=== PATIENT | female | born 1935 | race Caucasian/White ===

== ENCOUNTER 2019-04-22 15:27 | Outpatient (RCR) | payer MEDICARE, SELFPAY ==
--- NOTE | 2019-04-22 15:46 | OTOPEVAL ---
OT INITIAL EVALUATION 04/22/19 Thank you for referring this patient to [facility]. Skilled OT is recommended 1x/week for 4 weeks. Please review, sign, date and return this plan of care MARIAN. I agree with and certify that the following plan of care is medically necessary. Referring Physician Date Attending Provider: Eliezer Godwin MD *OT Outpatient Evaluation Therapy Assessment Status Assessment Status Evaluation Evaluation Information Problem Diagnosis (R) wrist OA Additional Evaluation Detail Patient has had right wrist pain for about 1 month. X-ray shows OA. Subjective Information Patient notes the pain is the Query Text:As Reported By Patient/ worst when she uses her Family hands for housework such as cleaning, wringing out a washcloth, dishes, and laundry. She wears a wrist brace at night and has been taking prescribed arthritis medication with good results. Pain Assessment Timing of Pain Assessment Timing of Pain Assessment Assessment Pain Scale Pain Scale Used Numeric (1 - 10) Self Report Pain Assessment Right Wrist(s) Reported Pain Level 2 Pain Description Aching,Dull Current Pain Intensity 2 Lowest Pain Intensity 0 Greatest Pain Intensity 4 Pain Aggravating Factors ADL's Pain Relief Interventions Used By Heat,Medication Patient Interventions Used By Clinicians Education,Exercise Additional Pain Comments Pain reduced to 1/10 post ROM and strengthening. Pain Score Pain Score 2: Self Report Upper Extremity Range of Motion General Upper Extremity Range of Motion Reason Not Measured WNL/Left,WNL/Right Upper Extremity Muscle Strength Testing Wrist Strength Bilateral Wrist Flexion Strength 4 Good Wrist Extension Strength 4 Good Wrist Radial Deviation 4 Good Wrist Ulnar Deviation 4 Good Hand Knot Tier/Pinch Strength Assessment Hand Right Knot Tier Strength (lbs) 39 Left Knot Tier Strength (lbs) 40 Palpation Assessment Palpation Palpation Tenderness at distal lateral radius in the area of the 1st extensor compartment. Testsfor de Quervein's are negative. OT Clinical Summary Clinical Summary Protocol: OTEVCODES Clinical Summary May presents with new orders for hand and wrist OA. She has been experiencing a
--- NOTE | 2019-04-28 16:03 | OTOPEVAL ---
OT DISCHARGE NOTE 04/28/19 May presented to outpatient treatment today without pain and feeling good . She has not had pain for about a week now and previously had 05/06 pain. She has been instructed in gross wrist and hand strengthening program and is independent with all materials. She is in agreement with discharge today with HEP. Thank you for referring this patient to [facility] Please review, sign, date and return this D/C Note MARIAN. I agree with and certify that the following plan of care is medically necessary. Referring Physician Date Attending Provider: Eliezer Godwin,
--- NOTE | 2019-04-28 16:07 | PCOTNOTE ---
OT DISCHARGE NOTE 04/28/19 May presents to outpatient therapy today without pain and feeling good . She has had minimal to no pain for 2 weeks and the exercises do not exacerbate her pain. 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 Thank you for referring this patient to [facility]. Please review, sign, date and return this discharge note MARIAN. I agree with and certify that the following plan of care is medically necessary. Referring Physician Date Attending Provider: Eliezer Godwin MD
== END 2019-05-27 13:57 | disposition home or self-care (01) ==
LOC: ANHHIOT 15:27
PROVIDERS: PCP Internal Medicine; Visit Provider Internal Medicine
DX: M19.041 Primary osteoarthritis, right hand (principal); M19.032 Primary osteoarthritis, left wrist
CPT/HCPCS: 97110

== ENCOUNTER 2019-09-22 09:35 | Outpatient (CLI) | payer MEDICARE, SELFPAY ==
--- NOTE | 2019-09-22 11:15 | NEURO_ITS ---
Patient Number: [id number] Impression: # Complains of numbness of both hands. # Bilateral severe Carpal Tunnel Syndrome, left more than right. # No ulnar neuropathy. # Needle/EMG exam not requested. Nerve Conduction Studies Anti Sensory Summary Table Stim Site NR Peak (ms) P-T Amp (?V) Site1 Site2 Delta-P (ms) Dist (cm) Venkat (m/s) Left Median Anti Sensory (2-3nd Digit) NO RESPONSE Wrist 7.1 6.0 Wrist 2-3nd Digit 7.1 14.0 20 Wrist NR Wrist 2-3nd Digit 7.1 14.0 20 Right Median Anti Sensory (2-3nd Digit) Wrist 6.6 10.7 Wrist 2-3nd Digit 6.6 14.0 21 Wrist 6.4 4.3 Wrist 2-3nd Digit 6.6 14.0 21 Left Radial Anti Sensory (Base 1st Digit) Wrist 2.2 24.2 Wrist Base 1st Digit 2.2 0.0 Right Radial Anti Sensory (Base 1st Digit) Wrist 2.3 18.9 Wrist Base 1st Digit 2.3 0.0 Left Ulnar Anti Sensory (5th Digit) Wrist 2.3 50.2 Wrist 5th Digit 2.3 14.0 61 Right Ulnar Anti Sensory (5th Digit) Wrist 2.7 35.7 Wrist 5th Digit 2.7 14.0 52 Motor Summary Table Stim Site NR Onset (ms) O-P Amp (mV) Site1 Site2 Delta-0 (ms) Dist (cm) Venkat (m/s) Left Median Motor (Abd Poll Brev) NO RESPONSE Wrist NR Elbow Wrist 26.0 Elbow NR Right Median Motor (Abd Poll Brev) Wrist 5.9 3.2 Elbow Wrist 4.6 29.0 63 Elbow 10.5 2.6 Left Ulnar Motor (Abd Dig Minimi) Wrist 2.9 8.2 A Elbow Wrist 5.2 29.0 56 A Elbow 8.1 6.2 Right Ulnar Motor (Abd Dig Minimi) Wrist 2.3 7.6 A Elbow Wrist 5.6 31.0 55 A Elbow 7.9 6.4 F Wave Studies NR F-Lat (ms) L-R F-Lat (ms) Left Median (Mrkrs) (Abd Poll Brev) 32.18 0.41 Right Median (Mrkrs) (Abd Poll Brev) 32.60 0.41 Left Ulnar (Mrkrs) (Abd Dig Min) 30.55 0.14 Right Ulnar (Mrkrs) (Abd Dig Min) 30.68 0.14 MTDD
== END 2019-09-22 09:36 | disposition home or self-care (01) ==
LOC: ANHNEURO 09:38
PROVIDERS: PCP Internal Medicine; Visit Provider Internal Medicine
DX: G56.03 Carpal tunnel syndrome, bilateral upper limbs (principal)
CPT/HCPCS: 95911

== ENCOUNTER 2020-03-07 11:00 | Outpatient (RCR) | payer MEDICARE, SELFPAY ==
--- NOTE | 2020-02-15 12:27 | PTOPEVAL ---
INITIAL PHYSICAL THERAPY EVALUATION Thank you for referring Priscilla Fabian to [facility] Priscilla is scheduled to be seen for physical therapy? 2x/week for 3 weeks. Please review, sign, date and return this plan of care MARIAN. I agree with and certify that the following plan of care is medically necessary. Referring Physician Date Admitting Provider: Attending Provider: Eliezer Godwin, MD Referring Provider: *PT Outpatient Evaluation Start: 02/15/20 11:13 Freq: Status: Active Protocol: Document 02/15/20 11:10 ROSA MARIA (Rec: 02/15/20 12:26 ROSA MARIA [id number]) Therapy Assessment Status Assessment Status Assessment Status Evaluation Outpatient Past Medical History Past Medical History Source of Past Medical History Patient Neurological History Hx Neurological Disorders No Significant History Cardiovascular History Hx Hypertension Yes Respiratory History Hx Chronic Obstructive Pulmonary Disease Yes (COPD) Gastrointestinal History Hx Gastroesophageal Reflux Disease Yes Genitourinary History Hx Genitourinary Disorders No Significant History Musculoskeletal History Hx Arthritis Yes: B knees, spine Hx Fractures Yes: L zygomatic arch from fall Endocrine History Hx Endocrine Disorders No Significant History HEENT History Hx Cataracts Yes: surgery Hx Dental Problems Yes: dentures Hx Other HEENT Disorders Yes: tinnitis, vertigo Psychosocial History Hx Anxiety Yes Hx Depression Yes Evaluation Information Problem Diagnosis low back pain Onset worsening past few months Subjective Information sitting - no pain, when dust Query Text:As Reported By Patient/ mopping, dusting, etc - an Family ache across the lower back. Yesterday - when changing out of clothes for the seasons - increased discomfort. Cleaning is difficult for her. Sleeps well. Feels pretty good in the mornings. Some mobility issues with her knees . 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
--- NOTE | 2020-02-20 15:06 | PCPTNOTE ---
May called & cancelled scheduled appointment this date due to illness. Able to reschedule her for later in the day, but she called again to cancel that rescheduled appointment.
--- NOTE | 2020-03-07 12:04 | PTOPEVAL ---
PHYSICAL THERAPY DISCHARGE SUMMARY Thank you for referring Priscilla Fabian to [facility].? Priscilla was seen for physical therapy?x 6 visits. All goals have been met and she is to continue with her HEP. I agree with May's discharge from PT. Referring Physician Date Admitting Provider: Attending Provider: Eliezer Godwin, MD Referring Provider: *PT Outpatient Evaluation Start: 02/15/20 11:13 Freq: Status: Active Protocol: Document 03/07/20 11:10 ROSA MARIA (Rec: 03/07/20 12:02 ROSA MARIA [id number]) Therapy Assessment Status Assessment Status Assessment Status Discharge Evaluation Information Problem Subjective Information May states that her back is Query Text:As Reported By Patient/ feeling good - no pain. Able Family to handle laundry better today . Main thing that limits her activity is her breathing. Pain Assessment Timing of Pain Assessment Timing of Pain Assessment Re-assessment Pain Scale Pain Scale Used Numeric (1 - 10) Self Report Pain Assessment Lower Back Reported Pain Level 0 Lowest Pain Intensity 0 Greatest Pain Intensity 0 Pain Score Pain Score 0: Self Report Cervical and Lumbar ROM Lumbar ROM Lumbar Flexion (0-90) 40 Query Text:Active in Degrees Lumbar Extension (0-40) 15 Query Text:Active in Degrees Lumbar Lateral Flexion Right (0-40) 15 Query Text:Active in Degrees Lumbar Lateral Flexion Left (0-40) 10 Query Text:Active in Degrees Palpation Assessment Palpation Palpation pelvis level in standing - equal SIJ mobility present initially - mild tenderness at sacral base L>R - but after manual techniques - no discomfort No tenderness with buttock musculature. PT Clinical Summary Clinical Summary Protocol: PTEVCODE PT Clinical Summary Modified Oswestry LPB Questionnaire - 0% May has been x 6 visits in PT and is doing well. She no longer has any back or buttock discomfort, improved pelvic/ sacral/SIJ alignment and mobility, increased core control now present with exercises, and she has returned back to usual ADLs, IADLs. She is now limited by her breathing rather than back
== END 2020-03-12 11:34 | disposition home or self-care (01) ==
LOC: ANHHIPT 11:00
PROVIDERS: PCP Internal Medicine; Visit Provider Internal Medicine
DX: M54.5 Low back pain (principal)
CPT/HCPCS: 97110; 97140; 97161

== ENCOUNTER 2021-04-17 10:39 | Outpatient (RCR) | payer MEDICARE, SELFPAY ==
--- NOTE | 2021-04-17 12:02 | OTOPEVAL ---
OCCUPATIONAL THERAPY INITIAL EVALUATION REPORT 04/17/21 Thank you for referring Priscilla Fabian to [facility].? The patient is scheduled to be seen for therapy? 1x/week for 3 weeks beginning the week of 04/29/21. Please review, sign, date and return this plan of care MARIAN. I agree with and certify that the following plan of care is medically necessary. Referring Physician Date Referring Provider: Eliezer Godwin, *OT Outpatient Evaluation Start: 04/17/21 10:59 Freq: Status: Active Protocol: Document 04/17/21 11:10 SPARKLE (Rec: 04/17/21 11:59 SPARKLE [id number]) Therapy Assessment Status Assessment Status Assessment Status Evaluation Outpatient Past Medical History Neurological History Hx Neurological Disorders No Significant History Cardiovascular History Hx Hypertension Yes Respiratory History Hx Chronic Obstructive Pulmonary Disease Yes (COPD) Gastrointestinal History Hx Gastroesophageal Reflux Disease Yes Genitourinary History Hx Genitourinary Disorders No Significant History Musculoskeletal History Hx Arthritis Yes: B knees, spine Hx Fractures Yes: L zygomatic arch from fall Endocrine History Hx Endocrine Disorders No Significant History HEENT History Hx Cataracts Yes: surgery Hx Dental Problems Yes: dentures Hx Other HEENT Disorders Yes: tinnitis, vertigo Psychosocial History Hx Anxiety Yes Hx Depression Yes Evaluation Information Problem Diagnosis Bilateral hand pain Onset Chronic Subjective Information Patient reports - Right hand Query Text:As Reported By Patient/ pain, most severe at night, Family wears compression gloves for bilat hands when sleeping. Left hand paresthesias, which are intermittent. She reports stiffness and that she frequently drops items. We tried 2 months of therapy Jan- Mar 2019 which consisted of splinting, modalities, and ROM . Some improvements with pain, but she was discharged with a progress plateau. She went ahead and had left carpal tunnel release September 2019. Pain Assessment Timing of Pain Assessment Timing of Pain Assessment Assessment Pain Scale Pain Scale Used Numeric (1 - 10) Self Report Pain Assessment Left Hand(s) Reported Pain Level 0 Pain Description
--- NOTE | 2021-05-01 11:15 | PCOTNOTE ---
Patient called & cancelled scheduled appointment this date due to not feeling well.
--- NOTE | 2021-05-07 16:26 | PCOTNOTE ---
Patient missed appt today. Called patient and she thought her appt was tomorrow.
--- NOTE | 2021-05-21 13:15 | PCOTNOTE ---
OCCUPATIONAL THERAPY DISCHARGE NOTIFICATION 05/21/21 Patient:Priscilla Fabian Date of :1935 Patient has not returned for any further treatments since her initial evaluation on 04/17/2021, therefore she will be discharged at this time. She cancelled all of her appointments due the cold weather. Followed up with her on the phone today and she states that her home exercise program is giving her relief and she is happy with that. The goals have been not assessed. Thank you for referring this patient to [facility]. Please review, sign, date and return this discharge summary MARIAN. I have been updated about the patient's current status and I agree with discharge from the above service at this time. Referring Physician Date Referring Provider: Eliezer Gdowin,
== END 2021-06-27 14:15 | disposition home or self-care (01) ==
LOC: ANHHIOT 10:39
PROVIDERS: PCP Internal Medicine; Visit Provider Internal Medicine
DX: M79.641 Pain in right hand (principal); M79.642 Pain in left hand
CPT/HCPCS: 97110; 97165